=== PATIENT | female | born 1970 | race Caucasian/White ===

== ENCOUNTER 2018-03-09 04:36 | Emergency (ER) | payer MEDICAID ==
[~2018-03-09] VITALS: Ht 154.9 cm; Wt 71.5 kg
[2018-03-09] MEDS ORDERED: ONDANSETRON HCL 4MG/2ML INJ IV STA (05:24)
[2018-03-09 05:54] LABS: BASOPHILS % 0.5 % (0.0-2.0); EOSINOPHILS % 1.2 % (0.0-5.0); HEMATOCRIT. 38.9 % (36.0-48.0); HEMOGLOBIN. 13.3 g/dL (12.0-16.0); LYMPHOCYTES % 19.7 % (20.0-50.0); MEAN CORPUSCULAR HEMOGLOBIN 28.5 pg (28.0-32.0); MONOCYTES % 8.9 % (2.0-8.0); NEUTROPHILS % 69.7 % (40.0-76.0); PLATELET 319 x1000/uL (130-400); RED BLOOD CELL COUNT 4.68 mill/uL (4.2-5.4); RED CELL DISTRIBUTION WIDTH 13.7 % (11.6-14.6)
[2018-03-09 06:01] LABS: CLARITY URINE CLEAR (CLEAR); COLOR URINE YELLOW (YELLOW); KETONES URINE NEGATIVE (NEGATIVE); LEUKOCYTE ESTERASE URINE NEGATIVE (NEGATIVE); NITRITE URINE NEGATIVE (NEGATIVE); OCCULT BLOOD URINE NEGATIVE (NEGATIVE); PH URINE 5.5 (4.5-8.0); PROTEIN URINE NEGATIVE (NEGATIVE); SPECIFIC GRAVITY URINE 1.017 (1.005-1.030); UROBILINOGEN URINE 0.2 E.U./dL (0.2-1.0)
[2018-03-09 06:05] LABS: CHLORIDE 105 mEq/L (98-107)
[2018-03-09 06:09] LABS: HCG SCREEN NEGATIVE
[2018-03-09] MEDS ORDERED: SODIUM CHLORIDE 0.9% 1,000 ML IV ONE (06:40)
[2018-03-09] MEDS ORDERED: KETOROLAC 30MG/ML VIAL IV ONE (06:45)
[2018-03-09] MEDS ORDERED: MECLIZINE 25MG TABLET PO ONE (06:45)
[2018-03-09 09:04] VITALS: BP 116/63
== END 2018-03-09 09:08 | disposition home or self-care (01) ==
LOC: ER 04:36 → CANBEDREQ 16:11
DX: R42 Dizziness and giddiness (principal); R11.2 Nausea with vomiting, unspecified; R51 Headache; R20.2 Paresthesia of skin; R50.9 Fever, unspecified; Z98.890 Other specified postprocedural states
CPT/HCPCS: 36415; 80053; 81003; 81025; 83690; 84703; 85025; 93005; 96361; 96374; 96375; 99285; J1885; J2405; J7030; J8597